=== PATIENT | female | born 2000 | race Caucasian/White ===

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

== ENCOUNTER 2020-07-30 23:44 | Emergency (ER) | payer OTHER, SELFPAY ==
[2020-07-30 23:45] VITALS: BP 152/82; PULSE 100; RESP 18; TEMP 35.7; O2SAT 99; BMI 33.4
--- NOTE | 2020-07-31 00:06 | EKG12_ITS ---
Test Reason : ANXIETY Blood Pressure : / mmHG Vent. Rate : 089 BPM Atrial Rate : 089 BPM P-R Int : 152 ms QRS Dur : 074 ms QT Int : 348 ms P-R-T Axes : 047 029 -02 degrees QTc Int : 423 ms Normal sinus rhythm Normal ECG Confirmed by BEBE DAMIAN, AFSANEH ([id number]), technical writer and editor STEFANIE DELGADO ([id number]) on 08/01/2020 9:45:42 AM Referred By: PC Confirmed By:AFSANEH SPENCE MD
--- NOTE | 2020-07-31 00:08 | EDS_ITS ---
HPI History of Present Illness Chief Complaint: Anxiety Detail of Chief Complaint: Patient presents with complaint of drinking too much caffeine Informant: patient Narrative Narrative: Patient presents with drinking to 5-hour energy drinks +2 Monster drinks over the course of 45 minutes. Now she is complaining of chest tightness and numbness and tingling in the left arm. Patient thought that maybe her blood pressure was high so she took a blood pressure pill from a friend and this was 50 mg of losartan. Patient denies feeling suicidal or homicidal. Prior similar symptoms: No PFSH PFSH Allergy/AdvReac Type Severity Reaction Status Date / Time amoxicillin [Amoxicillin] Allergy Hives Verified 07/30/20 23:53 Social History Smoking Status: Never smoker ROS ROS ED Constitutional Constitutional ED: Reports systems reviewed and no addt'l complaints, except as documented; Denies body ache(s), change in weight or chills Eyes Eyes: Denies acute decrease in peripheral vision, change in vision, double vision or loss of vision ENT ENT ED: Reports none; Denies ear pain, lip swelling, loss taste/smell, neck pain, otalgia or sore throat Cardiovascular Cardiovascular: Reports none and chest pain; Denies abdominal pain, chest pain with activity, leg edema, lightheadedness, palpitations, rapid heart rate or syncope Respiratory/Chest Respiratory/Chest: Reports none; Denies change in mental status, dry cough, dyspnea, hemoptysis, shortness of breath at rest or shortness of breath with exertion Gastrointestinal Gastrointestinal: Reports none; Denies abdominal pain, change in stool character, diarrhea, hematemesis, hematochezia, melena, rectal bleeding or vomiting Genitourinary Genitourinary ED: Reports none; Denies abdominal discomfort, anuria, dysuria, genital pain or polyuria Musculoskeletal Musculoskeletal: Reports none; Denies arthralgias, back pain, difficulty walking, extremity pain, muscle weakness or myalgias Integumentary Reports none; Denies abscess or rash Neurologic Neurologic: Reports none and paresthesias; Denies abnormal gait, confusion, focal weakness, frequent falls, headache(s), loss of vision, numbness, radicular pain, vertigo or weakness Psychiatric Psychiatric: Reports systems reviewed and no addt'l complaints, except as documented and none; Denies behavioral changes, confusion, difficulty concentrating, hallucinations, suicidal ideation, tactile hallucinations or visual hallucinations Endocrine Endocrinology: Denies none, cold intolerance, excessive sweating, fatigue or heat intolerance Hematologic/Lymphatic Hematologic/Lymphatic: Reports none; Denies anemia, easy bleeding or easy bruising Allergic/Immunologic Allergic/Immunologic ED: Denies as per HPI, none, lip swelling, mouth swelling, throat swelling, tongue swelling or hives EXAM Physical Exam Const Vital Signs: 07/30/20 23:45 Temperature 96.2 F L Temperature Source Temporal Pulse Rate 100 Respiratory Rate 18 Blood Pressure 152/82 H Blood Pressure Mean 105 Pulse Ox 99 Oxygen Delivery Method Room Air Positive well nourished and well developed General Appearance ED: well developed and NAD HEENT Reports TM's clear and moist mucous membranes normocephalic and atraumatic; Negative for trauma or tenderness Tympanic Membrane ED: Yes TM's clear Eyes PERRL and EOMs intact bilaterally General Eye ED: Negative for pale conjunctiva or scleral icterus Neck no lymphadenopathy, supple and no JVD General: Negative for tenderness Chest Wall inspection of chest normal and palpation of chest normal Chest: Negative for tenderness Resp normal respiratory effort and clear to auscultation bilaterally Effort and Inspection: Negative for respiratory distress or pain with movement Auscultation: Negative for rhonchi, wheezes or diminished lung sounds Cardio regular rate, regular rhythm, S1 normal heart sound, S2 normal heart sound and no murmurs Peripheral Pulses: pulses 2+ throughout GI normal to inspection, nondistended, normoactive bowel sounds, soft to palpation, non-tender, non-distended and no masses Back/Spine no CVA tenderness and no thoracic nor lumbar tenderness Extremity normal to inspection General Extremety ED: Negative for edema General Extremity: Negative for edema Neuro oriented x3, CN's II-XII intact bilaterally, no sensory deficits noted and gait normal Sensorium / Orientation: awake, alert, oriented to person, oriented to place and oriented to time Motor Exam: strength 5/5 throughout and strength abnormal Psych mental status grossly normal Skin no rashes or lesions noted and no wounds MDM MDM MDM Narrative Medical decision making narrative: Patient received Ativan 1 mg p.o. and was observed in the emergency department. On repeat examination at 2:10 AM her symptoms mostly resolved. She feels well. Patient advised to minimize caffeine intake and not take anybody else's medications. EKG Initial EKG: Comments: Normal sinus rhythm with a ventricular rate of of 89 bpm with no acute ST segment changes. Discharge Plan Triage Chief Complaint: Anxiety ED Provider: Reynaldo Lucas Dx/Rx/DC Orders Clinical Impression: Anxiety, Excessive caffeine intake Instructions: ED Anxiety Reaction Primary Care Provider: uJly Perez Referrals: July Perez, [facility] [Primary Care Provider] - As Needed Disposition Disposition: Home, self care
[2020-07-31] MEDS: LORazepam 1 MG Tablet PO (00:22)
[2020-07-31 02:25] VITALS: BP 123/68; PULSE 88; RESP 18; O2SAT 100
== END 2020-07-31 02:26 | disposition home or self-care (01) ==
PROVIDERS: Emergency Provider Emergency Medicine
DX: F41.9 Anxiety disorder, unspecified (principal)
CPT/HCPCS: 93005; 99283

== ENCOUNTER 2022-06-16 19:20 | Emergency (ER) | payer OTHER, SELFPAY ==
[2022-06-16 19:21] VITALS: BP 157/98; PULSE 134; RESP 18; TEMP 38.4; O2SAT 97; BMI 31.3
[2022-06-16 22:10] VITALS: BMI 36.1
--- NOTE | 2022-06-16 22:18 | CT_ITS ---
EXAM: CT PELVIS WITHOUT INTRAVENOUS CONTRAST CLINICAL INDICATION: abscess TECHNIQUE: Helically acquired images were obtained of the pelvis without intravenous contrast. This CT exam was performed using one or more of the following dose reduction techniques: automated exposure control, adjustment of the mA and/or kV according to patient size, and/or use of iterative reconstruction technique. This report was created using [employer] report generation technology. RADIATION DOSE: Total DLP: 1001.73 mGy-cm. COMPARISON: None. FINDINGS: BOWEL: Unremarkable as visualized. No bowel distention. No focal inflammatory change. APPENDIX: No evidence of acute appendicitis. INTRAPERITONEAL SPACE: Trace of nonspecific free fluid within the cul-de-sac, physiologic. 2 adjacent and rounded water- attenuation structures anteriorly within the pelvis, between the urinary bladder and umbilicus, consistent with noninflamed urachal cysts which measure up to 16 mm in diameter. No free air. BLADDER: Unremarkable. REPRODUCTIVE: Unremarkable as visualized. No mass. BONES/JOINTS: Unremarkable. No lytic osseous lesion. SOFT TISSUES: Moderate asymmetric stranding noted within subcutaneous fat of the medial right buttock; this fat stranding minimally extends to the left of midline. There is mild overlying skin thickening. No discrete subcutaneous fluid collection is identified. No bubbles of subcutaneous emphysema are seen. No pelvic wall hernia. The paraspinal and psoas muscles are symmetric. LYMPH NODES: Normal size lymph nodes in each groin. No enlarged lymph nodes. CT/Pelvis without IV Contrast IMPRESSION: Findings of cellulitis of the right buttock with skin thickening and underlying stranding within the subcutaneous fat. No abscess, bubbles of subcutaneous emphysema, or lytic osseous lesion identified. Electronically Signed: Yan Rodriguez MD at 23:31 EDT ,
--- NOTE | 2022-06-16 22:24 | EX.ED.DYSGE1 ---
HPI History of Present Illness Chief Complaint: Abscess Informant: patient Onset/Context/Timing Onset: Days (3 days) Narrative Narrative: Patient presents with a boil to her right buttock for the past 3 days. She noted Tmax today of 102. She had a recent pilonidal cyst but states this lesion is in a different location. [facility] Medical History no medical history no medical history Home Medications cephalexin 500 mg capsule 500 mg PO Q6 #40 CAPSULES 06/16/22 [Rx Last Taken Unknown] sulfamethoxazole 800 mg-trimethoprim 160 mg tablet (Bactrim DS) 1 tab PO BID #20 tabs 06/16/22 [Rx Last Taken Unknown] Allergy/AdvReac Type Severity Reaction Status Date / Time amoxicillin [Amoxicillin] Allergy Hives Verified 06/16/22 19:23 Surgical History History of tonsillectomy and adenoidectomy Social History Smoking Status: Never smoker ROS ROS ED Constitutional Constitutional ED: Reports fever(s) Eyes Eyes: Denies change in vision or discharge from eye(s) ENT ENT ED: Denies discharge from eye(s), rhinorrhea or sore throat Cardiovascular Cardiovascular: Denies chest pain or palpitations Respiratory/Chest Respiratory/Chest: Denies cough or dyspnea Gastrointestinal Gastrointestinal: Denies abdominal pain, diarrhea, nausea or vomiting Genitourinary Genitourinary ED: Denies dysuria Musculoskeletal Musculoskeletal: Denies back pain or extremity pain Integumentary Reports abscess; Denies Abrasions or rash Neurologic Neurologic: Denies headache(s) or weakness Psychiatric Psychiatric: Denies anxiety or depression Allergic/Immunologic Allergic/Immunologic ED: Denies lip swelling or urticaria EXAM Physical Exam Const Vital Signs: 06/16/22 19:21 Temperature 101.1 F H Temperature Source Temporal Pulse Rate 134 H Respiratory Rate 18 Blood Pressure 157/98 H Blood Pressure Mean 117 Pulse Ox 97 Oxygen Delivery Method Room Air Positive well nourished and well developed General Appearance ED: well developed HEENT Reports normocephalic and head/scalp atraumatic Eyes PERRL and EOMs intact bilaterally Neck supple Chest Wall inspection of chest normal and palpation of chest normal Resp normal respiratory effort and clear to auscultation bilaterally Cardio regular rhythm Rate: tachycardic GI normal to inspection, nondistended, normoactive bowel sounds Palpation: soft Narrative: Cutaneous abscess to the right buttock with firm induration measuring approximately 7 x 4 cm. No spontaneous drainage at this time. Mild surrounding cellulitis that has been outlined earlier today and does not extend beyond the outlined region. Extremity normal to inspection Neuro oriented x3 and no sensory deficits noted Sensorium / Orientation: alert Motor Exam: strength 5/5 throughout Psych mental status grossly normal MDM MDM MDM Narrative Medical decision making narrative: Patient given Tylenol for fever as well as Toradol for pain. Blood cultures obtained. Labwork obtained to evaluate for leukocytosis, anemia, and electrolyte derangement. CT scan of the pelvis obtained to ensure no deep tracking of abscess. Lab Data Attestation: I reviewed the patient's lab results. Labs: Laboratory Results - last 24 hr 06/16/22 06/16/22 06/16/22 22:40 22:40 22:48 WBC 13.5 H RBC 4.23 Hgb 12.1 Hct 36.5 L MCV 86.3 MCH 28.6 MCHC 33.2 RDW Std Deviation 39.3 RDW Coeff of Cassi 12.5 Plt Count 281 MPV 9.3 Immature Gran % (Auto) 0.600 Neut % (Auto) 75.7 H Lymph % (Auto) 16.4 L [place] % (Auto) 7.1 Eos % (Auto) 0.1 Baso % (Auto) 0.1 Absolute Neuts (auto) 10.2 H Absolute Lymphs (auto) 2.21 Nucleated RBC % 0 Sodium 133 L Potassium 3.6 Chloride 102 Carbon Dioxide 25.0 Anion Gap 6 BUN 13 Creatinine 0.84 Estim Creat Clear Calc 103.02 Est GFR (MDRD) Af Amer 110 Est GFR (MDRD) Non-Af 91 BUN/Creatinine Ratio 15.6 Glucose 95 Calcium 9.2 Serum , Qual NEGATIVE Radiography Diagnostic Testing: Clinical Impression(s) from Imaging Studies Pelvis CT 06/16/22 22:18 IMPRESSION: Findings of cellulitis of the right buttock with skin thickening and underlying stranding within the subcutaneous fat. No abscess, bubbles of subcutaneous emphysema, or lytic osseous lesion identified. Electronically Signed: Yan Rodriguez MD at 23:31 EDT , Treatment and Re-Evaluation :: On repeat evaluation patient resting comfortably. Temperature is 98.5. CBC does reveal white count of 13.5 with 75% neutrophils. Chemistry studies largely unremarkable. test negative. CT scan of the pelvis with IV contrast reveals findings consistent with cellulitis of the right buttock but no evidence of abscess. This is discussed with the patient and her mother at bedside. I did explain to her that over the next couple days she may walled off a focal abscess that needs to be drained, but at this time there is no fluid collection to drain. She will be treated with Bactrim and Keflex and return instructions are provided. Discharge Plan Triage Chief Complaint: Abscess ED Provider: Yuliana Harding Dx/Rx/DC Orders Clinical Impression: Cellulitis Instructions: ED Cellulitis Prescriptions: New sulfamethoxazole-trimethoprim [Bactrim DS] 800-160 mg tablet 1 tab PO BID Qty: 20 0RF cephalexin 500 mg capsule 500 mg PO Q6 Qty: 40 0RF Primary Care Provider: Care Physician,No Primary Referrals: July Perez, [facility] [[facility] TECHNICIAN] - 5-7 Days Disposition Disposition: Home, Self Care
[2022-06-16] MEDS: Acetaminophen 500 MG Tablet 1000 MG PO (22:35)
[2022-06-16] MEDS: Ketorolac 30 MG/ML Syringe IV (22:36)
[2022-06-16] MEDS: 0.9% Normal Saline 1,000 ML 150 ML IV (22:36)
[2022-06-16 22:50] LABS: Absolute Lymphocyte Count 2.21 X10^3/uL (0.83-4.51); Absolute Neutrophil Count 10.2 X10^3/uL (2.0-7.7); Basophil# 0.02 X10^3/uL; Basophil% 0.1 % (0-1); Eosinophil# 0.01 X10^3/uL; Eosinophils% 0.1 % (0-5); Hematocrit 36.5 % (37-47); Hemoglobin 12.1 g/dL (12.0-15.0); Lymphocyte # 2.21 X10^3/ul (0.83-4.51); Lymphocyte % 16.4 % (19-41); Mean Corp Hgb Conc 33.2 g/dL (32-36); Mean Corpuscular Hgb 28.6 pg (27.0-32.0); Mean Corpuscular Volume 86.3 fL (81-99); Mean Platelet Vol. 9.3 fl (6.2-12.0); Monocyte# 0.96 X10^3/uL; Monocyte% 7.1 % (0-10); NRBC Flagged by Analyzer 0 % (0-5); Neutrophil # 10.23 X10^3/uL (2.7-7.7); Neutrophil % 75.7 % (47-70); Platelet Count 281 K/mm3 (150-450); RBC Distribution Width CV 12.5 % (11.6-14.6); RBC Distribution Width SD 39.3 fl (35.1-43.9); Red Blood Count 4.23 M/mm3 (4.2-5.4); White Blood Count 13.5 K/mm3 (4.4-11.0)
[2022-06-16 23:02] LABS: Anion Gap 6 (5-15); BUN 13 mg/dL (7-18); BUN/Creat Ratio 15.6 RATIO (10-20); Calcium,Total 9.2 mg/dL (8.5-10.1); Chloride 102 mmol/L (98-107); Creatinine, Serum 0.84 mg/dL (0.55-1.02); EST Glomerular Filtration Rate 91 mL/min (>60); Est Glom Filt Rate - Afr Amer 110 mL/min (>60); Estimated Creatinine Clearance 103.02 ml/min; Glucose 95 mg/dL (74-106); Potassium 3.6 mmol/L (3.5-5.1); Sodium Level 133 mmol/L (136-145)
[2022-06-16 23:02] LABS: Internal QC Validated? YES +Cl - CLEAR BKGD; Pregnancy, Serum, hCG Quali. NEGATIVE Negative
[2022-06-17] MEDS: Smz/Tmp Ds Tablet 1 TABLET PO (00:12)
[2022-06-17] MEDS: Cephalexin 250 MG Capsule 500 MG PO (00:12)
== END 2022-06-17 00:19 | disposition home or self-care (01) ==
PROVIDERS: Emergency Provider Emergency Medicine; Visit Provider Emergency Medicine
DX: L03.317 Cellulitis of buttock (principal); L05.91 Pilonidal cyst without abscess
CPT/HCPCS: 72192; 80048; 84703; 85025; 87040; 99282; J7030; A4216